=== PATIENT | male | born 1970 | race African-American/Black ===

== ENCOUNTER 2023-12-23 15:19 | Inpatient (IN) ==
[2023-12-23 16:05] LABS: Hematocrit (blood only) 41.7 % (42.0-52.0); Hemoglobin 13.6 g/dl (14.0-18.0); Mean Corpuscular Hemoglobin 26.8 pg (25.0-34.0); Mean Corpuscular Hgb Conc 32.6 g/dL (32.0-36.0); Mean Corpuscular Volume 82.1 fL (80.0-100.0); Mean Platelet Volume 9.8 fL (9.4-12.4); Platelet Count 338 K/uL (130-400); RDW Coefficient of Variation 13.9 % (11.5-14.5); Red Blood Count 5.08 M/uL (4.70-6.10); White Blood Count 9.55 K/ul (4.8-10.8)
--- NOTE | 2023-12-23 16:17 | Emergency Department Note ---
Impression & Plan Intracranial vascular stenosis, Acute CVA (cerebrovascular accident) ED Provider Note HISTORY OF PRESENT ILLNESS: Patient is a 53-year-old male presenting with left arm weakness and numbness. Patient reports that he went to bed completely normal at 2200 on 12/22/2023. He states that he awoke at 02:30-03:00 this morning because he was diaphoretic and sweaty and noticed that his left arm was completely numb and he could not move it. Reports symptoms lasted for about an hour. He was able to call his significant other who noted that his speech sounded slurred. 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 He states that in the last week he has had intermittent episodes in which the fingers on his left arm feel numb and tingly and the left side of his face feels numb like "a dentist injected me with lidocaine." He denies having any other symptoms this morning when he had the left arm weakness. Denies any headache or changes in vision. Denies any recent head injury or chiropractic manipulation of his neck. Denies any chest pain or shortness of breath. ROS: as above PHYSICAL EXAM: Constitutional: Patient appears in no acute distress. HENT: Head: Normocephalic and atraumatic. Eyes: EOMI, PERRL Mouth/Throat: Mucous membranes moist. Neck: Trachea midline. Neck supple. Cardiovascular: RRR, No murmurs, rubs or gallops. Intact distal pulses. Pulmonary/Chest: No respiratory distress. Breath sounds clear and equal bilaterally. No wheezes or rales. Abdominal: Abdomen soft, no tenderness, rebound or guarding. Musculoskeletal: No edema, tenderness or deformity noted. Skin: Warm and dry. No rash, erythema, pallor or cyanosis Psychiatric: Appropriate mood and affect for situation. Neurological: Alert and keenly responsive. Facies symmetric. Able to raise eyebrows, close eyes, smile, puff mouth, stick out tongue, move tongue left and right and raise palate symmetrically. Able to shrug shoulders. PERRLA. SILT to forehead below eye and at jawline. Can hear soft noise bilaterally. Good finger to nose. Strength 5/5 in bilateral upper and lower extremities. SILT throughout bilateral upper and lower extremities. MDM: - Vitals signs showed hypertension. - History obtained via patient. Patient presents with left arm weakness and numbness. Patient reports he went to bed completely normal at 2200 on 12/2023. He reports he awoke at around 3 AM this morning and was diaphoretic and sweaty and noticed his left arm was completely numb and he could not move it. Symptoms lasted for about an hour. He called his significant other who noted that his speech sounded slurred. 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 He states in the last week he has been having intermittent episodes in which his fingers of his left arm feel numb and tingly in the left side of his face feels numb. Denies any chest pain or shortness of breath. Denies any headache or changes in vision. - Chronic conditions affecting care: HTN - Differential diagnoses include, but are not limited to: CVA; TIA; ACS; electrolyte abnormality; dysrhythmia - Order placed for continuous cardiac monitoring. At this time, monitor showed rate of 71 bpm with normal sinus rhythm, per my interpretation. - External medical records reviewed. EMS run sheet was reviewed. Patient was vitally stable and route. No medications were given prehospital. - EKG interpreted by myself showed normal sinus rhythm. Rate 75 bpm. QT 422. No acute ischemic changes. Noted to have a right bundle branch block. - Laboratory workup interpreted by myself showed normal WBC; stable electrolytes - CXR negative for pneumonia - CT head wo contrast showed no acute hemorrhage or mass effect. Noted to have possible small acute infarct in the right parietal lobe. - Patient presents >12 hours post symptom onset. He is outside the window for TNK. No evidence of large vessel occlusion on imaging. - CTA head/neck showed severe multifocal stenoses within the intracranial vessels including severe stenosis of the bilateral cavernous carotids - Patient given 324 mg PO aspirin and 300 mg PO plavix for TIA symptoms and CTA findings. - Discussion was had with progressive care nurse about patient's case and need for admission - Hospitalist consulted for admission - Patient admitted to [facility] for further evaluation and management. ASSESSMENT AND PLAN: Diagnosis: CVA; intracranial vascular stenoses Plan: admit Past Med/Surg History Social History Smoking Status: Current every day smoker Tobacco Type: Cigarettes Feels Safe at Home: Yes Results & Data (ED) Vital Signs Vital Signs - 24 hr 12/23/23 15:23 12/23/23 15:33 12/23/23 16:58 Temperature 37.1 C Temperature Source Oral Pulse Rate 81 Pulse Rate [Right Finger] 88 83 Pulse Rhythm [Right Finger] Pulse Strength [Right Finger] Respiratory Rate 19 18 18 Respiratory Effort / Characteristics Non-Labored Non-Labored Non-Labored Respiratory Depth Normal Normal Normal Respiratory Pattern Regular Blood Pressure 157/109 H Blood Pressure [Right Arm] 157/109 H 133/98 Blood Pressure Mean 125 Blood Pressure Mean [Right Arm] 125 109 Blood Pressure Position [Right Arm] Pulse Oximetry 99 96 98 Oxygen Delivery Method Room Air Room Air Room Air Sepsis Recent Fever Within 48 Hours No Sepsis New/Unexplained Change in Mental Status No Sepsis Action Taken by Nursing No Action Required 12/23/23 18:59 12/23/23 20:00 Temperature Temperature Source Pulse Rate Pulse Rate [Right Finger] 74 71 Pulse Rhythm [Right Finger] Regular Pulse Strength [Right Finger] Normal Respiratory Rate 18 16 Respiratory Effort / Characteristics Non-Labored Spontaneous Respiratory Depth Normal Respiratory Pattern Regular Blood Pressure Blood Pressure [Right Arm] 146/97 H 158/115 H Blood Pressure Mean Blood Pressure Mean [Right Arm] 113 129 Blood Pressure Position [Right Arm] Lying Pulse Oximetry 98 96 Oxygen Delivery Method Room Air Room Air Sepsis Recent Fever Within 48 Hours Sepsis New/Unexplained Change in Mental Status Sepsis Action Taken by Nursing Laboratory Data 12/23/23 15:31 12/23/23 16:53 Lab Results 12/23/23 12/23/23 12/23/23 Range/Units 15:31 15:35 16:53 WBC 9.55 (4.8-10.8) K/ul RBC 5.08 (4.70-6.10) M/uL Hgb 13.6 L (14.0-18.0) g/dl Hct 41.7 L (42.0-52.0) % MCV 82.1 (80.0-100.0) fL MCH 26.8 (25.0-34.0) pg MCHC 32.6 (32.0-36.0) g/dL RDW Std Deviation 41.0 (36.4-46.3) fL RDW Coeff of Antonio 13.9 (11.5-14.5) % Plt Count 338 (130-400) K/uL MPV 9.8 (9.4-12.4) fL PT 10.4 (9.0-12.0) Seconds INR 0.9 (0.9-1.1) APTT 28 (21-31) Seconds PTT Ratio 1.0 Sodium 137 (136-145) mmol/L Potassium TNP 4.0 Chloride 107 (98-107) mmol/L Carbon Dioxide 25 (21-32) mmol/L Anion Gap 5 (3-11) BUN 10 (6-23) mg/dl Creatinine 0.98 (0.6-1.4) mg/dl Est Cr Clr Drug Dosing 109.0 ml/min Est GFR ( Amer) 100.9 ml/min Est GFR (Non-Af Amer) 87.1 ml/min BUN/Creatinine Ratio 10.2 (10-20) Glucose 88 (70-99(Fasting)) mg/dl POC Glucose 106 H (70-99) mg/dl Calcium 9.9 (8.6-10.3) mg/dl Magnesium 2.1 (1.7-2.4) mg/dl Total Bilirubin 0.3 (0.2-1.0) mg/dl AST TNP 12 L ALT 10 (7-52) U/L Alkaline Phosphatase 63 (34-104) U/L Total Protein 8.1 (6.0-8.3) gm/dl Albumin 4.2 (3.4-5.0) gm/dl Globulin 3.9 (2.5-4.0) gm/dl Albumin/Globulin Ratio 1.1 (0.9-2) Administered Medications Discontinued Medications Ioversol (Optiray 320 125ml) 116 ml IV ONCE ONE Stop: 12/23/23 18:05 Last Admin: 12/23/23 18:04 Dose: 116 ml Documented By: BRIELLE Imaging Data Radiologist's Impression: Chest X-Ray 12/23/23 15:38 XR chest 1V portable HISTORY: 53 years-old Male tia symptoms acute stroke like symptoms COMPARISON: None TECHNIQUE: AP view of the chest FINDINGS: Cardiomediastinal and hilar silhouettes are within normal limits. No pneumothorax, pleural effusion or airspace consolidation. Bones appear grossly intact. Mild sigmoidal scoliosis of the spine. IMPRESSION: No acute processes. ACT 112: Negative or not required by law. The above report was generated using voice recognition software. It may contain grammatical, syntax or spelling errors. Electronically signed by: Lloyd Jaimes M.D. 12/23/2023 5:[address] 12/23/23 16:14 CT OF THE HEAD WITHOUT CONTRAST CLINICAL HISTORY: Left arm weakness/numbness COMPARISON STUDY: No previous studies for comparison. TECHNIQUE: Helical axial images of the head were obtained without IV contrast. Automated exposure control was utilized for the study. A dose lowering technique was utilized adhering to the principles of ALARA. FINDINGS: No acute intracranial hemorrhage, midline shift or mass effect is present. The ventricular system is unremarkable. Basal cisterns are patent. There are no extra-axial collections. A 4 cm focus of encephalomalacia within the left frontal lobe favors an old infarct. There is subtle hypodensity with loss of edwards-white differentiation within the right parietal lobe which measures 1.5 cm in extent. There is no mass effect. Ossification along the falx is incidentally noted. Basal cisterns are patent. There are no extra axial collections. Extensive intracranial vascular calcification is present. CTA of the head will be reported separately. There are no significant calvarial abnormalities IMPRESSION: 1. No acute intracranial hemorrhage or mass effect. 2. Subtle hypodensity density with loss of edwards-white differentiation within the right parietal lobe. This could reflect a small acute infarct. 3. Old left frontal lobe infarct. 4. Extensive intracranial vascular calcification. ACT 112: Negative or not required by law. Electronically signed by: Silvio Grover M.D. 12/23/2023 7:07 PM Head CTA 12/23/23 16:14 CTA ANGIOGRAPHY OF THE HEAD CLINICAL HISTORY: L arm weakness/numbness COMPARISON STUDY: No previous studies for comparison. TECHNIQUE: Helical axial images of the head were obtained following uneventful intravenous administration of 116 cc of Optiray. Sagittal and coronal reconstructions were viewed as well as maximal intensity projections on an independent 3-D workstation. Automated exposure control was utilized for the study. A dose lowering technique was utilized adhering to the principles of ALARA. CT DOSE: 977.73 mGy.cm FINDINGS: Please note that the head CT will be reported separately. No acute hemorrhage was noted on that exam. Old left frontal lobe infarct is present. Ventricular system is unremarkable. Basal cisterns are patent. There are no extra axial collections. There is extensive calcified and noncalcified plaque within the bilateral cavernous and supraclinoid ICAs. There are severe stenoses within the bilateral cavernous carotids. However, the bilateral M1, M2, A1 and A2 segment are patent. No central vessel occlusion is identified. There is no intracranial aneurysm. Severe stenoses within the intracranial portion of the left vertebral artery are present. The basilar artery is patent. The posterior cerebral arteries are patent. There are moderate stenoses within the bilateral P2 segments. IMPRESSION: 1. Severe multifocal stenoses within the intracranial vessels, including severe stenosis of the bilateral cavernous carotids and the intracranial portion of the left vertebral artery. Extensive intracranial vascular plaque. 2. No large vessel occlusion. No intracranial aneurysm. ACT 112: Negative or not required by law. Electronically signed by: Silvio Grover M.D. 12/23/2023 7:31 PM Neck CTA 12/23/23 16:14 CT ANGIOGRAPHY OF THE NECK WITH CONTRAST CLINICAL HISTORY: Left arm weakness/numbness. COMPARISON STUDY: No previous studies for comparison. Technique: CT angiography of the carotid and vertebral arteries was obtained using Optiray and 3D reconstruction on an independent workstation. NASCET criteria was utilized. Automated exposure control was utilized for the study. A dose lowering technique was utilized adhering to the principles of ALARA. Findings: Visualized portions of the lung apices are unremarkable. There is no cervical lymphadenopathy. There is no cervical spine fracture. The bilateral common carotid and cervical internal carotid arteries are patent. There is mild plaque within the carotid bifurcations without stenosis. The right vertebral artery is dominant and patent. There is severe stenosis at the origin of the left vertebral artery. There are also severe stenoses within the intracranial portion of the left vertebral artery. No aneurysm or dissection within the neck is present. IMPRESSION: 1. No stenoses within the bilateral common carotid or cervical internal carotid arteries. Mild plaque within bilateral carotid bifurcations. 2. Severe stenoses within the proximal and distal left vertebral artery, as described above. ACT 112: Negative or not required by law. Electronically signed by: Silvio Grover M.D. 12/23/2023 7:19 PM Discharge Plan Visit Data Chief Complaint: TIA Symptoms ED Provider: Grace Ashley Discharge Problem: Intracranial vascular stenosis, Acute CVA (cerebrovascular accident) Forms Stand Alone Forms: [facility] Referrals Referrals: PCP,NO [Primary Care Provider] -
[2023-12-23 16:26] LABS: Alanine Aminotransferase 10 U/L (7-52); Albumin Globulin Ratio 1.1 (0.9-2); Albumin Level 4.2 gm/dl (3.4-5.0); Alkaline Phosphatase 63 U/L (34-104); Anion Gap 5 (3-11); BUN Creatinine Ratio 10.2 (10-20); Bilirubin,Total 0.3 mg/dl (0.2-1.0); Blood Urea Nitrogen 10 mg/dl (6-23); Calcium 9.9 mg/dl (8.6-10.3); Carbon Dioxide 25 mmol/L (21-32); Chloride 107 mmol/L (98-107); Est GFR (African American) 100.9 ml/min; Est GFR (Non-African American) 87.1 ml/min; Globulin 3.9 gm/dl (2.5-4.0); Glucose 88 mg/dl (70-99(Fasting)); Magnesium 2.1 mg/dl (1.7-2.4); Sodium 137 mmol/L (136-145); Total Protein 8.1 gm/dl (6.0-8.3)
[2023-12-23 16:37] LABS: INR 0.9 (0.9-1.1); Partial Thromboplastin Time 28 Seconds (21-31); Prothrombin Time 10.4 Seconds (9.0-12.0)
--- NOTE | 2023-12-23 16:53 | Electrocardiogram Report ---
Test Reason : Blood Pressure : / mmHG Vent. Rate : 075 BPM Atrial Rate : 075 BPM P-R Int : 182 ms QRS Dur : 138 ms QT Int : 422 ms P-R-T Axes : 054 017 015 degrees QTc Int : 471 ms Sinus rhythm with marked sinus arrhythmia Right bundle branch block Possible Old Inferior infarct Abnormal ECG No previous ECGs available Confirmed by Rayshawn Alonso ([id number]) on 12/23/2023 4:53:24 PM Referred By: Confirmed By:Rayshawn Alonso
--- NOTE | 2023-12-23 17:08 | XRay Report ---
XR chest 1V portable HISTORY: 53 years-old Male tia symptoms acute stroke like symptoms COMPARISON: None TECHNIQUE: AP view of the chest FINDINGS: Cardiomediastinal and hilar silhouettes are within normal limits. No pneumothorax, pleural effusion o r airspace consolidation. Bones appear grossly intact. Mild sigmoidal scoliosis of the spine. IMPRESSION: No acute processes. ACT 112: Negative or not required by law. The above report was generated using voice recognition software. It may contain grammatical, syntax o r spelling errors. Electronically signed by: Lloyd Jaimes M.D. 12/23/2023 5:06 PM
[2023-12-23] MEDS: OPTIRAY 320 125ml IV ONE (18:04)
--- NOTE | 2023-12-23 19:10 | CT Scan Report ---
CT OF THE HEAD WITHOUT CONTRAST CLINICAL HISTORY: Left arm weakness/numbness COMPARISON STUDY: No previous studies for comparison. TECHNIQUE: Helical axial images of the head were obtained without IV contrast. Automated exposure con trol was utilized for the study. A dose lowering technique was utilized adhering to the principles o f ALARA. FINDINGS: No acute intracranial hemorrhage, midline shift or mass effect is present. The ventricular system is unremarkable. Basal cisterns are patent. There are no extra-axial collections. A 4 cm focus of encephalomalacia within the left frontal lobe favors an old infarct. There is subtle hypodensity with loss of edwards-white differentiation within the right parietal lobe which measures 1.5 cm in exten t. There is no mass effect. Ossification along the falx is incidentally noted. Basal cisterns are pat ent. There are no extra axial collections. Extensive intracranial vascular calcification is present. CTA of the head will be reported separately. There are no significant calvarial abnormalities IMPRESSION: 1. No acute intracranial hemorrhage or mass effect. 2. Subtle hypodensity density with loss of edwards-white differentiation within the right parietal lobe. This could reflect a small acute infarct. 3. Old left frontal lobe infarct. 4. Extensive intracranial vascular calcification. ACT 112: Negative or not required by law. Electronically signed by: Silvio Grover M.D. 12/23/2023 7:07 PM
--- NOTE | 2023-12-23 19:21 | CT Scan Report ---
CT ANGIOGRAPHY OF THE NECK WITH CONTRAST CLINICAL HISTORY: Left arm weakness/numbness. COMPARISON STUDY: No previous studies for comparison. Technique: CT angiography of the carotid and vertebral arteries was obtained using Optiray and 3D rec onstruction on an independent workstation. NASCET criteria was utilized. Automated exposure control was utilized for the study. A dose lowering technique was utilized adhering to the principles of ALA RA. Findings: Visualized portions of the lung apices are unremarkable. There is no cervical lymphadenopat hy. There is no cervical spine fracture. The bilateral common carotid and cervical internal carotid a rteries are patent. There is mild plaque within the carotid bifurcations without stenosis. The right vertebral artery is dominant and patent. There is severe stenosis at the origin of the left vertebral artery. There are also severe stenoses within the intracranial portion of the left vertebral artery. No aneurysm or dissection within the neck is present. IMPRESSION: 1. No stenoses within the bilateral common carotid or cervical internal carotid arteries. Mild plaque within bilateral carotid bifurcations. 2. Severe stenoses within the proximal and distal left vertebral artery, as described above. ACT 112: Negative or not required by law. Electronically signed by: Silvio Grover M.D. 12/23/2023 7:19 PM
--- NOTE | 2023-12-23 19:34 | CT Scan Report ---
CTA ANGIOGRAPHY OF THE HEAD CLINICAL HISTORY: L arm weakness/numbness COMPARISON STUDY: No previous studies for comparison. TECHNIQUE: Helical axial images of the head were obtained following uneventful intravenous administr ation of 116 cc of Optiray. Sagittal and coronal reconstructions were viewed as well as maximal inten sity projections on an independent 3-D workstation. Automated exposure control was utilized for the study. A dose lowering technique was utilized adhering to the principles of ALARA. CT DOSE: 977.73 mGy.cm FINDINGS: Please note that the head CT will be reported separately. No acute hemorrhage was noted on that exam. Old left frontal lobe infarct is present. Ventricular system is unremarkable. Basal cister ns are patent. There are no extra axial collections. There is extensive calcified and noncalcified pl aque within the bilateral cavernous and supraclinoid ICAs. There are severe stenoses within the bilat eral cavernous carotids. However, the bilateral M1, M2, A1 and A2 segment are patent. No central vess el occlusion is identified. There is no intracranial aneurysm. Severe stenoses within the intracrania l portion of the left vertebral artery are present. The basilar artery is patent. The posterior cereb ral arteries are patent. There are moderate stenoses within the bilateral P2 segments. IMPRESSION: 1. Severe multifocal stenoses within the intracranial vessels, including severe stenosis of the bilat eral cavernous carotids and the intracranial portion of the left vertebral artery. Extensive intracra nial vascular plaque. 2. No large vessel occlusion. No intracranial aneurysm. ACT 112: Negative or not required by law. Electronically signed by: Silvio Grover M.D. 12/23/2023 7:31 PM
[2023-12-23] MEDS: CLOPIDOGREL BISULFATE 300 MG TAB PO STA (20:15)
[2023-12-23] MEDS: ASPIRIN CHEW 324 MG PO STA (20:16)
--- NOTE | 2023-12-23 22:11 | History & Physical Report ---
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 Patient woke up around 2:30 to 3 AM in the morning and he noticed his left arm was completely numb and he could not move it. And he called his and mother and they thought his speech is slurred. The weakness and numbness in the left upper extremity lasted few hours. When he is recovering also felt some numbness in his left side of the face. He thinks the speech is improving. Somewhat speaking slowly. He states since last 1 to 2 weeks he is noticing on and off numbness in his left arm and fingers and left- sided face like dentist injecting lidocaine but thought his symptoms are from using his hand for driving. Today morning also when he felt numbness and weakness in left upper extremity he initially thought because of the way he slept. Denies any headache. No blurred visions. No earache. No runny nose or sore throat. No cough. States he just got over a cold. No chest pain or shortness of breath. No nausea. No abdominal pain. Normal bowel and bladder movements. Currently resting comfortably and hemodynamically stable. Acute CVA Woke up with left upper extremity numbness and weakness around 2:30 to 3 AM and also some slurred speech Improving CT head shows possible small acute infarct in the right middle lobe. Old left frontal lobe infarct CTA head and neck: Severe multifocal stenoses within the intracranial vessels, including severe stenosis of the bilateral cavernous carotids and the intracranial portion of the left vertebral artery. Extensive intracranial vascular plaque.Mild plaque within bilateral carotid bifurcations. Severe stenoses within the proximal and distal left vertebral artery, Loaded with aspirin and Plavix Continue home statin Follow HbA1c and lipid profile Follow MRI scan ,echo PT OT and speech evaluation Neuroconsult in a.m. Close monitoring telemetry floor Hypertension Continue home amlodipine hold losartan Allow for permissive hypertension Will monitor Hyperlipidemia On statin Follow lipid profile Tobacco abuse needs counselling. 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 Patient woke up around 2:30 to 3 AM in the morning and he noticed his left arm was completely numb and he could not move it. And he called his and mother and they thought his speech is slurred. The weakness and numbness in the left upper extremity lasted few hours. When he is recoveri melody also felt some numbness in his left side of the face. He thinks the speech is improving. Somewhat speaking slowly. He states since last 1 to 2 weeks he is noticing on and off numbness in his left arm and fingers and left-sided face like dentist injecting lidocaine but thought his symptoms are from using his hand for driving. Today morning also when he felt numbness and weakness in left upper extremity he initially thought because of the way he slept. Denies any headache. No blurred visions. No earache. No runny nose or sore throat. No cough. States he just got over a cold. No chest pain or shortness of breath. No nausea. No abdominal pain. Normal bowel and bladder movements. Currently resting comfortably and hemodynamically stable. Past medical history. As mentioned above Past surgical history. Inguinal hernia repair on the right side. Social history. Smoking half pack a day for last 30 years. Alcohol occasional. No drug use. Family history. Father from [place] at age of 71. Mother has hypertension and had back surgeries. Allergies Allergy/AdvReac Type Severity Reaction Status Date / Time No Known Allergies Allergy Unverified 12/23/23 20:25 Home Medications Medication Instructions Recorded Confirmed Type amlodipine 10 mg tablet 10 mg PO DAILY 12/23/23 12/23/23 History aspirin 81 mg tablet,delayed 81 mg PO DAILY 12/23/23 12/23/23 History release coQ10 (ubiquinol) 200 mg capsule 200 mg PO DAILY 12/23/23 12/23/23 History ergocalciferol (vitamin D2) 1,250 50,000 unit PO DAILY 12/23/23 12/23/23 History mcg (50,000 unit) capsule losartan 50 mg tablet 50 mg PO DAILY 12/23/23 12/23/23 History omega-3 fatty acids 1,000 mg 1,000 mg PO DAILY 12/23/23 12/23/23 History capsule rosuvastatin 10 mg tablet 10 mg PO DAILY 12/23/23 12/23/23 History tadalafil 5 mg tablet 5 mg PO DAILY PRN .. 12/23/23 12/23/23 History Past Med/Surg History Social History Smoking Status: Current every day smoker Tobacco Type: Cigarettes Cigarettes Per Day: 18; Hx Alcohol Use: No Hx Substance Use: No Preferred Language: Vietnamese Communication Ability: Effective Electrolysis Needle Operator Required: No Beliefs That Will Affect Care: None Current Living Situation: Alone Other Information That Helps Us Care for You: No Feels Safe at Home: Yes Safety Concerns: Feels Safe At This Time Review of Systems Review of Systems: All systems reviewed & are unremarkable except as noted in HPI & below Physical Exam Physical Exam: General-Not in distress Head- atraumatic Eyes- PERRL. ENT- oropharynx clear Neck- supple, no JVD. Lungs- clear to auscultation no wheezing or crackles Heart- regular rate and rhythm; no murmur, no gallop. Abdomen- normal bowel sounds, soft, nontender, no distension. Extremities- no pretibial edema, no erythema seen. Neuro- alert, oriented x 3; PERRL, no facial palsy; no dysarthria; motor 5/5 bilaterally; coordination of movements normal. No pronator drift. Sensations intact. position sense intact. Skin- warm & dry Results & Data Results & Data Vital Signs (Past 12 Hours) Vital Signs Temp Pulse Pulse Resp BP BP Pulse Ox 12/23/23 20:56 75 12/23/23 20:00 71 16 158/115 H 96 12/23/23 18:59 74 18 146/97 H 98 12/23/23 16:58 83 18 133/98 98 12/23/23 15:33 88 18 157/109 H 96 12/23/23 15:23 37.1 C 81 19 157/109 H 99 O2 Del Method 12/23/23 20:56 12/23/23 20:00 Room Air 12/23/23 18:59 Room Air 12/23/23 16:58 Room Air 12/23/23 15:33 Room Air 12/23/23 15:23 Room Air Diagnostic Findings Laboratory Results WBC 9.55 K/ul (4.8-10.8) 12/23/23 15:31 RBC 5.08 M/uL (4.70-6.10) 12/23/23 15:31 Hgb 13.6 g/dl (14.0-18.0) L 12/23/23 15:31 Hct 41.7 % (42.0-52.0) L 12/23/23 15: MCV 82.1 fL (80.0-100.0) 12/23/23 15: MCH 26.8 pg (25.0-34.0) 12/23/23 15: MCHC 32.6 g/dL (32.0-36.0) 12/23/23 15: RDW Std Deviation 41.0 fL (36.4-46.3) 12/23/23 15: RDW Coeff of Antonio 13.9 % (11.5-14.5) 12/23/23 15: Plt Count 338 K/uL (130-400) 12/23/23 15: MPV 9.8 fL (9.4-12.4) 12/23/23 15: PT 10.4 Seconds (9.0-12.0) 12/23/23 15: INR 0.9 (0.9-1.1) 12/23/23 15: APTT 28 Seconds (21-31) 12/23/23 15: PTT Ratio 1.0 12/23/23 15:31 Sodium 137 mmol/L (136-145) 12/23/23 15:31 Potassium 4.0 mmol/L (3.5-5.1) 12/23/23 16:53 Chloride 107 mmol/L (98-107) 12/23/23 15: Carbon Dioxide 25 mmol/L (21-32) 12/23/23 15:31 Anion Gap 5 (3-11) 12/23/23 15:31 BUN 10 mg/dl (6-23) 12/23/23 15: Creatinine 0.98 mg/dl (0.6-1.4) 12/23/23 15: Est Cr Clr Drug Dosing 109.0 ml/min 12/23/23 15: Est GFR ( Amer) 100.9 ml/min 12/23/23 15: Est GFR (Non-Af Amer) 87.1 ml/min 12/23/23 15: BUN/Creatinine Ratio 10.2 (10-20) 12/23/23 15: Glucose 88 mg/dl (70-99(Fasting)) 12/23/23 15:31 POC Glucose 106 mg/dl (70-99) H 12/23/23 15:35 Calcium 9.9 mg/dl (8.6-10.3) 12/23/23 15:31 Magnesium 2.1 mg/dl (1.7-2.4) 12/23/23 15:31 Total Bilirubin 0.3 mg/dl (0.2-1.0) 12/23/23 15:31 AST 12 U/L (13-39) L 12/23/23 16:53 ALT 10 U/L (7-52) 12/23/23 15:31 Alkaline Phosphatase 63 U/L (34-104) 12/23/23 15:31 Troponin I High Sens 5.1 pg/ml (0-20) 12/23/23 20:19 Total Protein 8.1 gm/dl (6.0-8.3) 12/23/23 15:31 Albumin 4.2 gm/dl (3.4-5.0) 12/23/23 15:31 Globulin 3.9 gm/dl (2.5-4.0) 12/23/23 15:31 Albumin/Globulin Ratio 1.1 (0.9-2) 12/23/23 15:31 Impressions Chest X-Ray 12/23/23 15:38 XR chest 1V portable HISTORY: 53 years-old Male tia symptoms acute stroke like symptoms COMPARISON: None TECHNIQUE: AP view of the chest FINDINGS: Cardiomediastinal and hilar silhouettes are within normal limits. No pneumothorax, pleural effusion or airspace consolidation. Bones appear grossly intact. Mild sigmoidal scoliosis of the spine. IMPRESSION: No acute processes. ACT 112: Negative or not required by law. The above report was generated using voice recognition software. It may contain grammatical, syntax or spelling errors. Electronically signed by: Lloyd Jaimes M.D. 12/23/2023 5:[address] 12/23/23 16:14 CT OF THE HEAD WITHOUT CONTRAST CLINICAL HISTORY: Left arm weakness/numbness COMPARISON STUDY: No previous studies for comparison. TECHNIQUE: Helical axial images of the head were obtained without IV contrast. Automated exposure control was utilized for the study. A dose lowering technique was utilized adhering to the principles of ALARA. FINDINGS: No acute intracranial hemorrhage, midline shift or mass effect is present. The ventricular system is unremarkable. Basal cisterns are patent. There are no extra-axial collections. A 4 cm focus of encephalomalacia within the left frontal lobe favors an old infarct. There is subtle hypodensity with loss of edwards-white differentiation within the right parietal lobe which measures 1.5 cm in extent. There is no mass effect. Ossification along the falx is incidentally noted. Basal cisterns are patent. There are no extra axial collections. Extensive intracranial vascular calcification is present. CTA of the head will be reported separately. There are no significant calvarial abnormalities IMPRESSION: 1. No acute intracranial hemorrhage or mass effect. 2. Subtle hypodensity density with loss of edwards-white differentiation within the right parietal lobe. This could reflect a small acute infarct. 3. Old left frontal lobe infarct. 4. Extensive intracranial vascular calcification. ACT 112: Negative or not required by law. Electronically signed by: Silvio Grover M.D. 12/23/2023 7:07 PM Head CTA 12/23/23 16:14 CTA ANGIOGRAPHY OF THE HEAD CLINICAL HISTORY: L arm weakness/numbness COMPARISON STUDY: No previous studies for comparison. TECHNIQUE: Helical axial images of the head were obtained following uneventful intravenous administration of 116 cc of Optiray. Sagittal and coronal reconstructions were viewed as well as maximal intensity projections on an independent 3-D workstation. Automated exposure control was utilized for the study. A dose lowering technique was utilized adhering to the principles of ALARA. CT DOSE: 977.73 mGy.cm FINDINGS: Please note that the head CT will be reported separately. No acute hemorrhage was noted on that exam. Old left frontal lobe infarct is present. Ventricular system is unremarkable. Basal cisterns are patent. There are no extra axial collections. There is extensive calcified and noncalcified plaque within the bilateral cavernous and supraclinoid ICAs. There are severe stenoses within the bilateral cavernous carotids. However, the bilateral M1, M2, A1 and A2 segment are patent. No central vessel occlusion is identified. There is no intracranial aneurysm. Severe stenoses within the intracranial portion of the left vertebral artery are present. The basilar artery is patent. The posterior cerebral arteries are patent. There are moderate stenoses within the bilateral P2 segments. IMPRESSION: 1. Severe multifocal stenoses within the intracranial vessels, including severe stenosis of the bilateral cavernous carotids and the intracranial portion of the left vertebral artery. Extensive intracranial vascular plaque. 2. No large vessel occlusion. No intracranial aneurysm. ACT 112: Negative or not required by law. Electronically signed by: Silvio Grover M.D. 12/23/2023 7:31 PM Neck CTA 12/23/23 16:14 CT ANGIOGRAPHY OF THE NECK WITH CONTRAST CLINICAL HISTORY: Left arm weakness/numbness. COMPARISON STUDY: No previous studies for comparison. Technique: CT angiography of the carotid and vertebral arteries was obtained u [email or web address] and 3D reconstruction on an independent workstation. NASCET criteria was utilized. Automated exposure control was utilized for the study. A dose lowering technique was utilized adhering to the principles of ALARA. Findings: Visualized portions of the lung apices are unremarkable. There is no cervical lymphadenopathy. There is no cervical spine fracture. The bilateral common carotid and cervical internal carotid arteries are patent. There is mild plaque within the carotid bifurcations without stenosis. The right vertebral artery is dominant and patent. There is severe stenosis at the origin of the left vertebral artery. There are also severe stenoses within the intracranial portion of the left vertebral artery. No aneurysm or dissection within the neck is present. IMPRESSION: 1. No stenoses within the bilateral common carotid or cervical internal carotid arteries. Mild plaque within bilateral carotid bifurcations. 2. Severe stenoses within the proximal and distal left vertebral artery, as described above. ACT 112: Negative or not required by law. Electronically signed by: Silvio Grover M.D. 12/23/2023 7:19 PM ECG Additional Comments: ECG. Sinus rhythm with marked sinus arrhythmia at a rate of 75. Right bundle branch block. Possible old inferior infarct. Code Status & VTE Plan VTE Prophylaxis Plan VTE Prophylaxis will be ordered: Yes
[2023-12-24] MEDS ORDERED: POLYETHYLENE (MIRALAX) 17 GM PACK PO PRN (00:48)
[2023-12-24] MEDS ORDERED: NITROGLYCERIN SL 0.4 MG/TAB TAB SL PRN (00:48)
[2023-12-24] MEDS ORDERED: ACETAMINOPHEN 325 MG TAB PO PRN (00:48)
[2023-12-24] MEDS ORDERED: PHARMACIST DISCHARGE MED REC CONSULT PRN (00:48)
[2023-12-24] MEDS: SODIUM CHLORIDE 0.9% 1,000 ML IV SCH (01:20)
[2023-12-24] MEDS: GADOBUTROL 65ML VIAL IV ONE (02:24)
--- NOTE | 2023-12-24 03:27 | Magnetic Resonance Report ---
Exam(s): MRI HEAD W/WO Contrast IV Amt: 10cc gadavist EXAM: MR Head Without and With Intravenous Contrast CLINICAL HISTORY: Reason for exam: cva. TECHNIQUE: Magnetic resonance images of the head/brain without and with intravenous contrast in multiple planes. CONTRAST: Patient received 10cc gadavist of IV contrast COMPARISON: Comparison made to prior noncontrasted CT from December 23, 2023. FINDINGS: Brain: There are multiple small to tiny acute ischemic injuries right frontal and parietal lobes without evidence of hemorrhagic transformation. Remote ischemic injuries of the bilateral frontal, left occipital and right parietal lobes with encephalomalacia and gliosis. No mass. No hemorrhage. The flow voids at the base of the brain are intact. There is a small amount of enhancement adjacent to the right frontal lobe ischemic injury. The dural venous sinuses are patent. Tiny pineal cyst. Ventricles: Unremarkable. No ventriculomegaly. Bones/joints: Unremarkable. No acute fracture. Sinuses: Unremarkable as visualized. No acute sinusitis. Mastoid air cells: Unremarkable as visualized. No mastoid effusion. Orbits: Unremarkable as visualized. IMPRESSION: Multiple small to tiny foci of acute ischemic injury in the right frontal and parietal lobes concerning for embolic phenomena. No evidence of hemorrhagic transformation. Communications: Verify Receipt Electronically signed by: Ashtyn Lara MD 12/24/23 03:26 AM
[2023-12-24 04:33] LABS: Basophils # (auto) 0.09 K/uL (0.00-0.20); Basophils % (auto) 1.2 %; Eosinophils # (auto) 0.33 K/uL (0.00-0.50); Eosinophils % (auto) 4.5 %; Hematocrit (blood only) 39.8 % (42.0-52.0); Hemoglobin 12.8 g/dl (14.0-18.0); Immature Granulocytes # (auto) 0.02 K/uL (0.01-0.20); Immature Granulocytes % (auto) 0.3 %; Lymphocytes # (auto) 2.75 K/uL (1.20-3.40); Lymphocytes % (auto) 37.6 %; Mean Corpuscular Hemoglobin 26.4 pg (25.0-34.0); Mean Corpuscular Hgb Conc 32.2 g/dL (32.0-36.0); Mean Corpuscular Volume 82.2 fL (80.0-100.0); Mean Platelet Volume 9.6 fL (9.4-12.4); Monocytes # (auto) 0.53 K/uL (0.11-0.59); Monocytes % (auto) 7.2 %; Neutrophils % (auto) 49.2 %; Platelet Count 332 K/uL (130-400); RDW Coefficient of Variation 13.9 % (11.5-14.5); Red Blood Count 4.84 M/uL (4.70-6.10); White Blood Count 7.32 K/ul (4.8-10.8)
[2023-12-24 04:46] LABS: BUN Creatinine Ratio 9.1 (10-20); Calcium 9.5 mg/dl (8.6-10.3); Chol HDL Ratio 3.2 (0-5); Creatinine Clr Calc Pharmacy 107.9 ml/min; Est GFR (African American) 99.7 ml/min; Potassium 3.7 mmol/L (3.5-5.1)
[2023-12-24 07:35] LABS: Estimated Average Glucose 134 mg/dl; Hemoglobin A1C 6.3 % (4.5-5.6)
[2023-12-24] MEDS: amLODIPine BESYLATE 5 MG TAB PO SCH (08:39)
[2023-12-24] MEDS: ROSUVASTATIN CALCIUM 10 MG TAB PO SCH (08:39)
[2023-12-24] MEDS ORDERED: NON-FORMULARY MEDICATION (Coq10 (Ubiquinol) 200 mg Capsule) PO SCH (09:00)
--- NOTE | 2023-12-24 13:26 | Neurology Consultation ---
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 Agree with dual antiplatelet therapy and would increase crestor to 40mg daily. 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 Recommend he also see a neuroendovascular surgeon in [facility] for his symptomatic stenosis. 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 After connecting through interactive tele-video, patient was identified by name and date of and/or wristband check.Patient (or authorized healthcare customer service representative) was informed that this was a telemedicine visit and it was being conducted confidentially over secure lines. My office door was closed and no one else was present in the room with me.Patient (or authorized healthcare repr esentative) provided consent to proceed with the visit, expressed an understanding of privacy and security of the telemedicine visit, and gave permission to have a hospital customer service representative in the room in order to assist with the visit and to conduct portions of the visit, as needed. I informed the patient (or authorized healthcare customer service representative) that I reviewed their record and presented the opportunity for them to ask any questions regarding the visit today. The patient agreed to participate. History of Present Illness Reason for Consultation: Stroke Requesting Physician: Dr. Tapia Attending Physician: Theresa Tapia MD History of Present Illness Jian Walden is a 53 yo M presenting with L arm weakness now resolved. 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 Allergies Allergy/AdvReac Type Severity Reaction Status Date / Time No Known Allergies Allergy Unverified 12/23/23 20:25 Home Medications Medication Instructions Recorded Confirmed Type amlodipine 10 mg tablet 10 mg PO DAILY 12/23/23 12/23/23 History aspirin 81 mg tablet,delayed 81 mg PO DAILY 12/23/23 12/23/23 History release coQ10 (ubiquinol) 200 mg capsule 200 mg PO DAILY 12/23/23 12/23/23 History ergocalciferol (vitamin D2) 1,250 50,000 unit PO DAILY 12/23/23 12/23/23 History mcg (50,000 unit) capsule losartan 50 mg tablet 50 mg PO DAILY 12/23/23 12/23/23 History omega-3 fatty acids 1,000 mg 1,000 mg PO DAILY 12/23/23 12/23/23 History capsule rosuvastatin 10 mg tablet 10 mg PO DAILY 12/23/23 12/23/23 History tadalafil 5 mg tablet 5 mg PO DAILY PRN .. 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 Oriented to person, place, and time. Fluent. Comprehension intact. Affect appropriate. Cranial Nerves: II: pupils 3/3 to 2/2, christensen grossly intact. III/IV/: Versions intact without nystagmus, no gaze preference. V: Facial sensation symmetric to light touch VII: Facial expression symmetric VIII: Hearing intact to voice IX/X: Palate elevates symmetrically XI: Shoulder shrug symmetric XII: Tongue midline Motor: Strength was symmetric and antigravity throughout. Pronator drift was absent. There were no abnormal movements. Gait: Narrow based and normal. Results & Data Vital Signs (Past 12 Hours) Vital Signs Temp Pulse Resp BP Pulse Ox O2 Del Method 12/24/23 10:50 36.8 C 75 18 118/79 99 Room Air 12/24/23 07:23 36.9 C 77 18 126/82 99 Room Air 12/24/23 04:58 36.8 C 72 19 134/80 100 Room Air 12/24/23 02:45 36.8 C 86 18 167/99 H 97 Room Air Laboratory Results Abnormal lab results 12/23/23 12/23/23 12/23/23 Range/Units 15:31 15:35 16:53 Hgb 13.6 L (14.0-18.0) g/dl Hct 41.7 L (42.0-52.0) % BUN/Creatinine Ratio (10-20) Glucose (70-99(Fasting)) mg/dl POC Glucose 106 H (70-99) mg/dl Hemoglobin A1c (4.5-5.6) % AST 12 L (13-39) U/L 12/24/23 Range/Units 03:49 Hgb 12.8 L (14.0-18.0) g/dl Hct 39.8 L (42.0-52.0) % BUN/Creatinine Ratio 9.1 L (10-20) Glucose 102 H (70-99(Fasting)) mg/dl POC Glucose (70-99) mg/dl Hemoglobin A1c 6.3 H (4.5-5.6) % AST (13-39) U/L Diagnostic Findings MRI - borderzone stroke in the R hemisphere CTA - severe bilateral siphon stenosis
--- NOTE | 2023-12-24 13:58 | Pharmacy Report ---
- Date of Service December 24, 2023 - Pharmacy CVA/TIA Medication Review Medications to Prevent Stroke handout has been added to the patients discharge packet. Antiplatelet(s) * Aspirin 81 mg PO daily * Clopidogrel 75 mg PO daily Cholesterol * High intensity statin: rosuvastatin 40 mg PO daily DVT Prophylaxis * SCD thigh Therapeutic Anticoagulation * No history of Afib/Aflutter noted Type 2 Diabetes * Patient does not have T2DM
[2023-12-24] MEDS: ASPIRIN 81 MG ECTAB PO SCH (14:40)
[2023-12-24] MEDS: CLOPIDOGREL BISULFATE 75 MG TAB PO SCH (14:40)
--- NOTE | 2023-12-24 15:27 | Hospitalist Progress Note ---
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 Patient woke up around 2:30 to 3 AM in the morning and he noticed his left arm was completely numb and he could not move it. And he called his and mother and they thought his speech is slurred. The weakness and numbness in the left upper extremity lasted few hours. When he is recovering also felt some numbness in his left side of the face. He thinks the speech is improving. Somewhat speaking slowly. He states since last 1 to 2 weeks he is noticing on and off numbness in his left arm and fingers and left- sided face like dentist injecting lidocaine but thought his symptoms are from using his hand for driving. Today morning also when he felt numbness and weakness in left upper extremity he initially thought because of the way he slept. Denies any headache. No blurred visions. No earache. No runny nose or sore throat. No cough. States he just got over a cold. No chest pain or shortness of breath. No nausea. No abdominal pain. Normal bowel and bladder movements. Currently resting comfortably and hemodynamically stable. 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 Old left frontal lobe infarct CTA head and neck: Severe multifocal stenoses within the intracranial vessels, including severe stenosis of the bilateral cavernous carotids and the intracranial portion of the left vertebral artery. Extensive intracranial vascular plaque.Mild plaque within bilateral carotid bifurcations. Severe stenoses within the proximal and distal left vertebral artery, Will need to see neurovascular as an outpatient Hypertension Continue home amlodipine hold losartan Allow for permissive hypertension Will monitor Hyperlipidemia On statin-the Crestor dose needs to be increased to 40 mg a day Follow lipid profile Tobacco abuse needs counselling. DVT prophylaxis SCD's Disposition Telemetry floor Full code Likely discharge in a day or 2 Admission and Anticipated Discharge Date Admission Date: December 23, 2023 Subjective 12/24/2023 The patient was seen and examined in telemetry unit He was admitted with numbness and tingling involving the left-sided extremities mostly the upper extremity has at Has had minimal/questionable dysarthria as well Everything resolved as of this morning Review of Systems Review of Systems: All systems reviewed and are unremarkable except as noted below Physical Exam Physical Exam: Lying in bed comfortably Constitutional: well developed, well nourished and + obese; not ill appearing Eyes: PERRL, conjunctivae normal, anicteric sclerae ENMT: external ear and nose normal, oropharynx normal Neck: trachea midline, no thyromegaly Respiratory: no respiratory distress Auscultation: lungs clear to auscultation bilaterally Cardiovascular: Rate/Rhythm: regular rate and regular rhythm; not tachycardic Heart Sounds: normal S1 and normal S2; no murmur Extremities: no edema Gastrointestinal (Abdomen): Inspection/Auscultation: normal bowel sounds; abdomen not distended Percussion/Palpation: abdomen soft; abdomen nontender Musculoskeletal: No acute arthritis involving any of the joint Neurologic: normal touch/pain/proprioception and moves all extremities; no focal motor deficits Results & Data Results & Data Vital Signs (Past 12 Hours) Vital Signs Temp Pulse Resp BP Pulse Ox O2 Del Method 12/24/23 15:03 36.8 C 75 20 131/84 100 Room Air 12/24/23 10:50 36.8 C 75 18 118/79 99 Room Air 12/24/23 07:23 36.9 C 77 18 126/82 99 Room Air 12/24/23 04:58 36.8 C 72 19 134/80 100 Room Air Laboratory Results Short CBC 12/23/23 12/24/23 Range/Units 15:31 03:49 WBC 9.55 7.32 (4.8-10.8) K/ul Hgb 13.6 L 12.8 L (14.0-18.0) g/dl Hct 41.7 L 39.8 L (42.0-52.0) % Plt Count 338 332 (130-400) K/uL BMP 12/23/23 12/23/23 12/24/23 15:31 16:53 03:49 Sodium 137 139 Potassium TNP 4.0 3.7 Chloride 107 106 Carbon Dioxide 25 27 BUN 10 9 Creatinine 0.98 0.99 Glucose 88 102 H Calcium 9.9 9.5 Liver Function 12/23/23 12/23/23 Range/Units 15:31 16:53 Total Bilirubin 0.3 (0.2-1.0) mg/dl AST TNP 12 L ALT 10 (7-52) U/L Alkaline Phosphatase 63 (34-104) U/L Albumin 4.2 (3.4-5.0) gm/dl Medications Administered Current Inpatient Medications Acetaminophen (Acetaminophen 325 Mg Tab) 650 mg PO Q4H PRN PRN Reason: Pain or Fever Stop: 01/23/24 00:47 Amlodipine Besylate (Amlodipine Besylate 5 Mg Tab) 10 mg PO DAILY STEF Stop: 01/23/24 08:59 Last Admin: 12/24/23 08:39 Dose: 10 mg Aspirin (Aspirin 81 Mg Ectab) 81 mg PO DAILY STEF Stop: 01/23/24 08:59 Last Admin: 12/24/23 14:40 Dose: 81 mg Clopidogrel Bisulfate (Clopidogrel Bisulfate 75 Mg Tab) 75 mg PO QAM STEF Stop: 01/23/24 11:59 Last Admin: 12/24/23 14:40 Dose: 75 mg Nitroglycerin (Nitroglycerin Sl 0.4 Mg/Tab Tab) 0.4 mg SL Q5M PRN PRN Reason: Chest Pain Stop: 01/23/24 00:47 Polyethylene Glycol (Polyethylene (Miralax) 17 Gm Pack) 17 gm PO DAILY PRN PRN Reason: Constipation Stop: 01/23/24 00:47 Rosuvastatin Calcium (Rosuvastatin Calcium 20 Mg Tab) 40 mg PO DAILY STEF Stop: 01/24/24 08:59
[2023-12-24] MEDS: ROSUVASTATIN CALCIUM 10 MG TAB PO ONE (16:35)
[2023-12-25] MEDS ORDERED: ROSUVASTATIN CALCIUM 20 MG TAB PO SCH
[2023-12-25] MEDS ORDERED: CLOPIDOGREL BISULFATE 75 MG TAB PO SCH
[2023-12-25 03:10] VITALS: TEMP 97.7
[2023-12-25 06:14] LABS: Basophils # (auto) 0.09 K/uL (0.00-0.20); Basophils % (auto) 1.3 %; Eosinophils # (auto) 0.38 K/uL (0.00-0.50); Eosinophils % (auto) 5.3 %; Hematocrit (blood only) 40.3 % (42.0-52.0); Immature Granulocytes # (auto) 0.02 K/uL (0.01-0.20); Immature Granulocytes % (auto) 0.3 %; Lymphocytes # (auto) 2.88 K/uL (1.20-3.40); Lymphocytes % (auto) 40.1 %; Mean Corpuscular Hemoglobin 26.4 pg (25.0-34.0); Mean Corpuscular Hgb Conc 32.3 g/dL (32.0-36.0); Mean Corpuscular Volume 81.9 fL (80.0-100.0); Mean Platelet Volume 9.4 fL (9.4-12.4); Monocytes # (auto) 0.53 K/uL (0.11-0.59); Monocytes % (auto) 7.4 %; Neutrophils # (auto) 3.28 K/uL (1.40-6.50); Neutrophils % (auto) 45.6 %; Platelet Count 322 K/uL (130-400); RDW Coefficient of Variation 13.6 % (11.5-14.5); RDW Standard Deviation 40.4 fL (36.4-46.3); Red Blood Count 4.92 M/uL (4.70-6.10); White Blood Count 7.18 K/ul (4.8-10.8)
[2023-12-25 06:36] LABS: BUN Creatinine Ratio 7.9 (10-20); Calcium 9.5 mg/dl (8.6-10.3); Creatinine Clr Calc Pharmacy 117.6 ml/min; Est GFR (African American) 112.3 ml/min; Est GFR (Non-African American) 96.9 ml/min; Magnesium 1.9 mg/dl (1.7-2.4); Phosphorus 3.7 mg/dl (2.5-4.9); Potassium 3.7 mmol/L (3.5-5.1)
[2023-12-25] MEDS: ROSUVASTATIN CALCIUM 20 MG TAB PO SCH (07:56)
--- NOTE | 2023-12-25 10:18 | Cardiology Consultation ---
Date of Consultation December 25, 2023 Assessment & Plan (1) 2nd degree AV block: (2) Hypertension: (3) Intracranial vascular stenosis: Plan Patient admitted with stroke like symptoms, confirmed CVA on head CT/Brain MRI. Severe stenosis of the b/l carotid siphons. Neuro consulted - Continue ASA, Plavix added. Crestor increase to 40 mg Will need neurovascular surgery upon discharge Echo is unrevealing. No interatrial shunt. Continue amlodipine for BP support. Currently controlled. Permissive hypertension recommended given severe stenosis of the intracranial arteries. He is having intermittent 2nd degree AV block, most of the strips appear to be type I (Wenckebach). There are several non sustained episodes of possibly type II (2:1 AV block). Most of these episodes were during sleep and improved upon wakening the patient. Confirmed personally as I awakened patient during these episodes and they quickly resolved. Needs YOUNG work up. No symptoms while awake. Avoid AV devika blocking agents. Monitor on telemetry until discharge. Consider outpatient monitor upon returning to [facility]. 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 Case management working with the patient. I encouraged him to have someone come to the area with current CDL and drive his truck home. Case discussed with Dr. Amaral I spent a total of 60 minutes on the date of service in preparation, delivery, and documentation of the care provided to this patient, excluding any time spent in the performance of separately billed services. Thalia Miranda PA-C Department of Cardiology, [facility] This chart was completed in part utilizing Speech Voice Recognition Software. Grammatical errors, random word insertions, pronoun errors, and incomplete sentences are an occasional consequence of this system due to software campuzano itations, ambient noise, and hardware issues. Any formal questions or concerns about the content, text, or information contained within the body of this dictation should be directly addressed to the provider for clarification. Supervising Physician Co-Signing Physician Notes Supervising Physician Attestation: I agree with the physician assisted living assistant's findings and plan as documented with the following additions. Unfortunately, the patient left the hospital AGAINST MEDICAL ADVICE prior to when I had the opportunity to examine him in person. Data: Summary of radiology report of the MRI of the brain: There are multiple small to tiny acute ischemic injuries in the right frontal and parietal lobes without evidence of hemorrhagic transformation. Remote ischemic injuries of the bilateral frontal, left occipital, and right parietal lobes with encephali show and gliosis. Impression per radiology report: Multiple small to tiny foci of acute ischemic injury in the right frontal and parietal lobes concerning for embolic phenomenon. No evidence of hemorrhagic transformation Echocardiogram performed 12/24/2023: Mild concentric left ventricular hypertrophy, normal LV wall motion, LVEF in the range of 60 to 65% within limits of LV mural thrombus, no evidence of interatrial shunt as evaluated with the administration of agitated saline contrast Assessment and Plan: Cerebral atherosclerosis as noted above. Acute ischemic stroke episode with CT and MRI findings of previous strokes with encephalomalacia Distribution on MRI of the brain suggest possible embolic phenomenon, but as noted, has severe atherosclerotic disease in the intracranial vessels Patient subsequently found to have intermittent Mobitz type I second-degree AV block (Wenckebach block) as well as 2-1 AV block during anticipated hours of sleep last night noted on telemetry at 2:30 AM, 4:28 AM, and again this morning while sleeping, with clinical suspicion for underlying obstructive sleep apnea. Patient asymptomatic from a bradycardia standpoint. Heart rates during sleep were in the 40s to 50s at their lowest. -Ongoing observation had been recommended however the patient left AGAINST MEDICAL ADVICE. 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 -Recommend avoiding AV devika blockade medications. -Agree with neurology recommendations for dual antiplatelet therapy and high intensity statin therapy. Ubaldo Amaral, DO History of Present Illness Reason for Consultation: 2nd Degree AV Block Requesting Physician: Dr. Flowers Attending Physician: Dr. 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 Brought to the ER via EMS. Head CT demonstrated small acute infarct in the right middle lobe, with possible old frontal lobe infarct. Head and neck CTA with severe multifocal stenosis of the intracranial vessels, with severe stenosis fo the bilateral cavernous carotids and left vertebral artery. Neuro was consulted. Started on Plavix, in addition to home ASA 81 mg daily. Crestor increased to 40 mg daily. Prior history includes: 1. Hypertension 2. Dyslipidemia 3. Chronic tobacco abuse Patient denies cardiovascular history. He reports his primary doctor in [place] is also a "heart doctor" but denies prior history of CAD, NE, CHF. He does not recall prior cardiac testing. Echo since admission demonstrated preserved LVEF, no wall motion abnormalities, mild LVH and no interatrial shunt. Cardiology was consulted due to patient developing intermittent 2nd degree AV block, type I and possibly type II (intermittent 2:1). Most of these episodes were during presumed sleep. This morning, patient was having intermittent Wenckebach and upon entering room, patient was sound asleep. No history of YOUNG. Never been tested. Patient reports his reports "loud snoring" is frequent. He has a CDL. Neuro is reporting he is unable to have CDL license for up to 1 year. At time of consult, patient reports feeling well. Awakened from sleep. No symptoms during second-degree AV block. He denies acute cardiac complaints. He denies a history of lightheadedness, dizziness, syncope or near syncope. No chest pain or unusual shortness of breath. No orthopnea, PND or lower extremity edema. He is hoping to be discharged today but his logistics need to be figured out in regards to his truck. Allergies Allergy/AdvReac Type Severity Reaction Status Date / Time No Known Allergies Allergy Unverified 12/23/23 20:25 Home Medications Medication Instructions Recorded Confirmed Type amlodipine 10 mg tablet 10 mg PO DAILY 12/23/23 12/23/23 History aspirin 81 mg tablet,delayed 81 mg PO DAILY 12/23/23 12/23/23 History release coQ10 (ubiquinol) 200 mg capsule 200 mg PO DAILY 12/23/23 12/23/23 History ergocalciferol (vitamin D2) 1,250 50,000 unit PO DAILY 12/23/23 12/23/23 History mcg (50,000 unit) capsule losartan 50 mg tablet 50 mg PO DAILY 12/23/23 12/23/23 History omega-3 fatty acids 1,000 mg 1,000 mg PO DAILY 12/23/23 12/23/23 History capsule rosuvastatin 10 mg tablet 10 mg PO DAILY 12/23/23 12/23/23 History tadalafil 5 mg tablet 5 mg PO DAILY PRN .. 12/23/23 12/23/23 History clopidogrel 75 mg tablet 75 mg PO QAM 30 days #30 tabs 12/25/23 Rx rosuvastatin 20 mg tablet (Crestor) 40 mg (2 x 20 mg) PO DAILY 30 days 12/25/23 Rx #60 tabs Patient History Social History Smoking Status: Current every day smoker Tobacco Type: Cigarettes Cigarettes Per Day: 18; Hx Alcohol Use: No Hx Substance Use: No Preferred Language: Cuban Communication Ability: Effective Case Manager Required: No Beliefs That Will Affect Care: None Current Living Situation: Alone Feels Safe at Home: Yes Assistive Devices: None Review of Systems Review of Systems: All systems reviewed & are unremarkable except as noted in HPI & below Physical Exam Constitutional: WD/WN, vitals as above well nourished; no acute distress Neck: trachea midline, no thyromegaly Respiratory: normal respiratory effort, lungs clear to auscultation Cardiovascular: Rate/Rhythm: regular rate and regular rhythm Heart Sounds: normal S1 and normal S2; no murmur Vessels: no JVD Extremities: no edema Gastrointestinal (Abdomen): normal bowel sounds, soft, nontender, no hepatosplenomegaly Musculoskeletal: no cyanosis or clubbing, extremities motor strength 5/5 Neurologic: PERRL, EOMI, accommodation nl, no face palsy, no dysarthria Results & Data Vital Signs (Past 12 Hours) Vital Signs Temp Pulse Resp BP Pulse Ox Pulse Ox O2 Del Method 12/25/23 07:28 36.5 C 77 21 132/91 98 Room Air 12/25/23 03:00 36.5 C 76 20 159/91 H 99 Room Air 12/25/23 00:48 97 12/24/23 23:00 36.7 C 87 19 157/95 H 98 Room Air O2 Del Method 12/25/23 07:28 12/25/23 03:00 12/25/23 00:48 Room Air 12/24/23 23:00 Laboratory Results CBC 12/25/23 Range/Units 05:35 WBC 7.18 (4.8-10.8) K/ul RBC 4.92 (4.70-6.10) M/uL Hgb 13.0 L (14.0-18.0) g/dl Hct 40.3 L (42.0-52.0) % Plt Count 322 (130-400) K/uL Neut # (Auto) 3.28 (1.40-6.50) K/uL Lymph # (Auto) 2.88 (1.20-3.40) K/uL Crosby # (Auto) 0.53 (0.11-0.59) K/uL Eos # (Auto) 0.38 (0.00-0.50) K/uL Baso # (Auto) 0.09 (0.00-0.20) K/uL Comprehensive Metabolic Panel 12/25/23 Range/Units 05:35 Sodium 139 (136-145) mmol/L Potassium 3.7 (3.5-5.1) mmol/L Chloride 106 (98-107) mmol/L Carbon Dioxide 27 (21-32) mmol/L BUN 7 (6-23) mg/dl Creatinine 0.89 (0.6-1.4) mg/dl Glucose 91 (70-99(Fasting)) mg/dl Calcium 9.5 (8.6-10.3) mg/dl Intake and Output 12/24/23 12/25/23 12/25/23 22:59 06:59 14:59 Intake Total 1360 / 1820 Balance 1360 / 1820 Intake: IV 1000 / 1000 Sodium Chloride 0.9% 1,000 ml @ 1000 / 1000 80 mls/hr IV .[id number] [facility] Rx#: [id number] Oral 360 / 820 Other: Weight 98.5 kg Weight Measurement Method Standing Scale Diagnostic Findings Telemetry reviewed: Predominant rhythm is NSR ranging 80-100 bmp. Overnight he had several episodes of 2nd degree AV block type I and possibly type II (2:1). This morning he also had short runs of what appears to be 2nd degree type I, Wenckebach. Frequency of heart block improved after patient was awakened from sleep. He had several short bouts of 2nd degree while awake. No symptoms. Echocardiogram report reviewed dated 12/24/2023: No prior study for comparison. Ejection fraction 60 to 65%. Mild concentric LVH. Since significant valvular pathology. Injection of contrast documented no interatrial shunt. EKG on admission dated 12/23/2023: Normal sinus rhythm with possible second-degree type I AV block Right bundle branch block Possible old inferior infarct EKG reviewed from 12/25/2023: Normal sinus rhythm at 66 bpm Right bundle branch block Possible old inferior infarct Brain MRI IMPRESSION: Multiple small to tiny foci of acute ischemic injury in the right frontal and parietal lobes concerning for embolic phenomena. No evidence of hemorrhagic transformation. Head and Neck CTA: IMPRESSION: 1. No stenoses within the bilateral common carotid or cervical internal carotid arteries. Mild plaque within bilateral carotid bifurcations. 2. Severe stenoses within the proximal and distal left vertebral artery, as described above. Medications Administered Current Inpatient Medications Acetaminophen (Acetaminophen 325 Mg Tab) 650 mg PO Q4H PRN PRN Reason: Pain or Fever Stop: 01/23/24 00:47 Amlodipine Besylate (Amlodipine Besylate 5 Mg Tab) 10 mg PO DAILY [facility] Stop: 01/23/24 08:59 Last Admin: 12/25/23 07:55 Dose: 10 mg Aspirin (Aspirin 81 Mg Ectab) 81 mg PO DAILY [facility] Stop: 01/23/24 08:59 Last Admin: 12/25/23 07:55 Dose: 81 mg Clopidogrel Bisulfate (Clopidogrel Bisulfate 75 Mg Tab) 75 mg PO QAM [facility] Stop: 01/23/24 11:59 Last Admin: 12/25/23 07:56 Dose: 75 mg Nitroglycerin (Nitroglycerin Sl 0.4 Mg/Tab Tab) 0.4 mg SL Q5M PRN PRN Reason: Chest Pain Stop: 01/23/24 00:47 Polyethylene Glycol (Polyethylene (Miralax) 17 Gm Pack) 17 gm PO DAILY PRN PRN Reason: Constipation Stop: 01/23/24 00:47 Rosuvastatin Calcium (Rosuvastatin Calcium 20 Mg Tab) 40 mg PO DAILY STEF Stop: 01/24/24 08:59 Last Admin: 12/25/23 07:56 Dose: 40 mg
--- NOTE | 2023-12-25 11:00 | Electrocardiogram Report ---
Test Reason : Blood Pressure : / mmHG Vent. Rate : 066 BPM Atrial Rate : 066 BPM P-R Int : 194 ms QRS Dur : 144 ms QT Int : 454 ms P-R-T Axes : 059 028 039 degrees QTc Int : 475 ms Normal sinus rhythm Right bundle branch block Old Inferior infarct (cited on or before 23-DEC-2023) Abnormal ECG When compared with ECG of 23-DEC-2023 15:29, No significant change was found Confirmed by Rayshawn Alonso ([id number]) on 12/25/2023 11:00:03 AM Referred By: REFERRED SELF Confirmed By:Rayshawn Alonso
[2023-12-25 11:15] VITALS: BP 151/99; PULSE 78; RESP 19; O2SAT 96
== END 2023-12-25 13:41 | disposition left against medical advice (07) | DRG 66 ==
LOC: ED 15:19 → SUATTDRO 21:48 → 4W 21:48